=== PATIENT | female | born 1990 | race Caucasian/White ===

== ENCOUNTER 2024-11-13 03:02 | Inpatient (IN) ==
[2024-11-13] MEDS ORDERED: LIDOCAINE 1% LOCAL 20 ML VIAL INFIL PRN (04:43)
[2024-11-13] MEDS ORDERED: NALOXONE HCL 0.4 MG/1 ML VIAL/CARP IV PRN (04:56)
[2024-11-13] MEDS ORDERED: ONDANSETRON INJ 2 MG/ML 2 ML VIAL IV PRN (04:56)
[2024-11-13] MEDS ORDERED: diphenhydrAMINE 50 MG/ML VIAL IV PRN (04:56)
[2024-11-13] MEDS ORDERED: LIDOCAINE 2% MPF LOCAL 5 ML VIAL EPI PRN (04:56)
[2024-11-13] MEDS ORDERED: NALBUPHINE HCL INJ 10 MG/ML AMP IV PRN (04:56)
[2024-11-13] MEDS ORDERED: NALOXONE HCL 1 MG in SODIUM CHLORIDE 0.9% 1,000 ML IV PRN (04:56)
[2024-11-13] MEDS ORDERED: ROPIVACAINE 0.5% PF 5 MG/ML 20 ML VIAL EPI PRN (04:56)
--- NOTE | 2024-11-13 04:56 | Anesthesiology Consultation ---
Date of Service November 13, 2024 Assessment & Plan ASA ASA2 Proposed Anesthesia Anesthesia Type: Labor Epidural Risk / Benefits Reviewed With: PT / POA / Parent / Guardian, Accepts Plan and Informed Consent Obtained History Height/Weight Height: 5 ft 6 in Weight: 76.204 kg Allergies Allergy/AdvReac Type Severity Reaction Status Date / Time No Known Allergies Allergy Verified 11/11/24 15:45 Medications Home Medications Medication Instructions Recorded Confirmed Last Taken PNV [id number] PO 04/06/24 11/11/24 Unknown [ Gummies] famotidine 20 mg tablet (Pepcid) 20 mg PO BID 11/13/24 11/13/24 Unknown Active Medications Generic Name Dose Route Start Last Admin Trade Name Freq PRN Reason Stop Dose Admin Lactated Ringer's 1,000 mls @ 125 mls/hr 11/13/24 04:43 11/13/24 05:00 Lr IV 11/15/24 04:42 999 mls/hr .Q8H PRN Administration L&D Protocol Protocol Past Medical History Medical History History of chicken pox Vasomotor rhinitis FH: breast cancer Exercise / Class Metabolic Activity II 4-5 Yardwork/Stairs/Walk up hill Past Family History Family History Grandmother (Maternal) Breast cancer Mother Breast cancer Cholesteatoma of ear Family/Other Breast cancer Grandfather (Maternal) Heart disease Grandfather (Paternal) Lung disease Father H/O gastric sleeve Denies family history of Ovarian cancer Prostate cancer Diabetes Myocardial infarction Colorectal cancer Past Surgical History Surgical History H/O oral surgery wisdom teeth History of incision and drainage had cyst that was small and growing Past Anesthesia History No Hx of Anesthesia Complications and No Family Hx of Anesthesia Complications History of PONV No Hx of PONV and No Hx of Motion Sickness Social History Smoking Status: Never smoker Do You Dip or Chew Tobacco: No Hx Alcohol Use: No (Socially) Hx Substance Use: No substance use type: does not use Review of Systems denies fever/cough/ colds/ chest pain/ SOB/ FREDI denies FREDI Physical Exam Vital Signs Last Vital Signs Temp 36.7 C 11/13/24 03:35 Pulse 84 11/13/24 05:30 Resp 18 11/13/24 03:35 BP 101/68 11/13/24 03:25 Pulse Ox 100 11/13/24 05:30 ENMT Mouth: no TMJ abnormality and no dentition abnormality Thyromental Distance: > or= 3.5 Finger Breadths Mallampati Class: II Neck neck extension not limited Respiratory normal respiratory effort; no respiratory distress Auscultation: lungs clear to auscultation bilaterally Cardiovascular Rate/Rhythm: regular rate and regular rhythm Neurologic moves all extremities Psychiatric Orientation: alert and oriented x 3 Testing Laboratory Results 11/13/24 04:56
[2024-11-13] MEDS: LACTATED RINGER'S 1,000 ML IV PRN (05:00)
[2024-11-13 05:32] LABS: Hematocrit (blood only) 37.6 % (37.0-47.0); Hemoglobin 12.7 g/dl (12.0-16.0); Mean Corpuscular Hemoglobin 32.6 pg (25.0-34.0); Mean Corpuscular Volume 96.4 fL (80.0-100.0); Platelet Count 213 K/uL (130-400); RDW Standard Deviation 46.8 fL (36.4-46.3); Red Blood Count 3.90 M/uL (4.20-5.40); White Blood Count 15.87 K/ul (4.8-10.8)
[2024-11-13] MEDS: fentANYL 2 MCG/ML BUPIVacaine 0.125%-NSS 100ML BAG ONE (05:56)
[2024-11-13] MEDS: BUPIVACAINE 0.25% PF 30 ML VIAL EPI STA (05:58)
[2024-11-13] MEDS: SODIUM CHLORIDE 0.9% PF INJ 10 ML VIAL EPI STA (05:58)
[2024-11-13] MEDS: LIDOCAINE 2%/EPINEPHRINE 1:200,000 20 ML PF EPI STA (05:58)
[2024-11-13] MEDS: BUPIVACAINE 0.25% PF 30 ML VIAL ONE (06:08)
[2024-11-13] MEDS: LIDOCAINE 2%/EPINEPHRINE 1:200,000 20 ML PF ONE (06:08)
[2024-11-13] MEDS: SODIUM CHLORIDE 0.9% PF INJ 10 ML VIAL ONE (06:08)
[2024-11-13] MEDS ORDERED: ACETAMINOPHEN 500 MG TAB PO PRN (09:01)
[2024-11-13] MEDS: CALCIUM CARBONATE 500 MG CHEWABLE TAB PO PRN (09:13)
[2024-11-13] MEDS: FAMOTIDINE 20MG IV PUSH 20 MG/5 ML SYR IV STA (09:31)
[2024-11-13] MEDS: SODIUM CHLORIDE 0.9% PF INJ 10 ML VIAL EPI PRN (10:14)
[2024-11-13] MEDS: BUPIVACAINE 0.25% PF 30 ML VIAL EPI PRN (10:15)
--- NOTE | 2024-11-13 10:21 | Anesthesia Procedure Note ---
Date of Service November 13, 2024 Anesthesia Epidural Re-Dose Vital Signs Temp Pulse Resp BP Pulse Ox 36.7 C 93 H 18 110/73 100 11/13/24 09:08 11/13/24 10:14 11/13/24 10:00 11/13/24 10:14 11/13/24 10:10 Notes Pain Intensity: 6 Dilatation (cm): 8.5 Effacement (%): 100 Heart Rate: 130 After Epidural Re-Dose Mental Status: alert / awake / arousable Pain: improving with treatment Airway Patency, RR, SpO2: stable & adequate BP & HR: stable & adequate Additional Notes: @ 1014, pt epidural bolused w/ 12 ml 0.17% bupivacaine + 100 mcgs fentanyl w/ in cremental aspirations and injections w/o incident.
[2024-11-13] MEDS: fentANYL 2 MCG/ML BUPIVacaine 0.125%-NSS 100ML BAG EPI PRN (12:14)
[2024-11-13] MEDS: OXYTOCIN 30 UNITS/NSS 30 UNITS/500 ML BAG IV PRN (15:26)
[2024-11-13] MEDS ORDERED: HYDROCORTISONE ACETATE 25 MG SUPP PR PRN (15:36)
[2024-11-13] MEDS ORDERED: OXYTOCIN 30 UNITS/NSS 30 UNITS/500 ML BAG IV PRN (15:36)
--- NOTE | 2024-11-13 15:36 | Delivery Summary ---
Vaginal Delivery Summary Date of Service November 13, 2024 Vaginal Delivery Summary and 2nd Degree LAC "Patient progressed to 10 cm dilated, 100% effaced, +2 station and pushed over intact perineum with epidural anesthesia and delivered a viable with weight and Apgars pending. Head of the delivered without difficulty and was quickly followed by shoulders and body. was noted to be vigorous upon delivery and a 1 minute delayed cord clamping was initiated. Cord was then double clamped and cut remained on maternal abdomen. Cord blood obtained and attention turned deliver the placenta was delivered intact with three-vessel cord gentle cord traction. Inspection of perineum, vagina and cervix was notable for a second-degree perineal laceration which was repaired with 3-0 Vicryl with the traditional crown stitch. Needle sponge and instrument counts are correct at the completion of the case. Both mother and stable in the immediate postdelivery timeframe. No complications noted and blood loss per [facility]BL [facility] Vaginal Delivery Charge Delivery Type Details: and 2nd Degree LAC
--- NOTE | 2024-11-13 16:24 | Anesthesia Procedure Note ---
Date of Service November 13, 2024 Anesthesia Post Epidural Note Vital Signs Vital Signs: Temp Pulse Resp BP Pulse Ox 37.1 C 117 H 18 111/69 99 11/13/24 14:05 11/13/24 16:15 11/13/24 16:15 11/13/24 16:15 11/13/24 15:45 Pain Intensity Bilateral Abdomen: Pain Intensity: 0 Notes Mental Status: alert / awake / arousable Nausea / Vomiting: adequately controlled Pain: adequately controlled Airway Patency, RR, SpO2: stable & adequate BP & HR: stable & adequate Hydration State: stable & adequate Neuraxial Anesthesia: was administered and sensory block is resolving Anesthetic Complications: no major complications apparent Epidural: Removed without complications and With tip intact
[2024-11-13] MEDS: BENZOCAINE 20% SPRY 85 APPLN/85 GM CAN EXT PRN (17:03)
[2024-11-13] MEDS: IBUPROFEN 600 MG TAB PO PRN (17:03)
[2024-11-13] MEDS: ACETAMINOPHEN 325 MG TAB PO PRN (18:41)
[2024-11-13] MEDS: DOCUSATE SODIUM 100 MG CAP PO SCH (20:11)
--- NOTE | 2024-11-14 06:19 | Obstetrical Progress Note ---
Date of Service November 14, 2024 Assessment & Plan (1) examination following vaginal delivery: Plan 34 y/o post- day 1 s/p NVSD Feels well today. Vital signs stable Continue post- care Encourage ambulation and Pain controlled with ibuprofen Hgb stable Discharge home tomorrow, follow up with Dr. Tripp in 6 weeks. Admission and Anticipated Discharge Date Admission Date: November 13, 2024 Supervising Physician Co-Signing Physician Notes Patient seen with resident and agree with the above findings and plan. Patient doing well. Continue routine care Subjective 34 yo post- day 1 s/p NVSD Ambulation: ambulating normally Voiding: no voiding problems Passing Gas:: Yes Diet Tolerance:: regular diet Lochia:: Small Feeding Type:: breast-feeding Current Pain Level: Resting comfortably this AM in NAD. Denies LARA, CP, SOB, N/V/D, LE pain/swelling. Physical Exam Physical Exam: General: patient resting comfortably, NAD, non-toxic in appearance, AA&O x 4, answers questions appropriately. Skin: warm, dry, intact HEENT: NC/AT, anicteric sclera, conjunctiva without injection, moist mucus membranes. Heart: +S1/S2, regular, no m/r/g Lungs: equal air entry bilaterally, no rales/rhonchi/wheezes Abd: +BS, soft, NT/ND, uterine fundus firm below umbilicus Ext: warm, no clubbing/cyanosis or edema, Mely's neg. Neuro: nonfocal, patient AA&O x 4, speech intact, no facial droop, moving all extremities on command. Results & Data Vital Signs (Past 12 Hours) Vital Signs Temp Pulse Pulse Resp BP BP Pulse Ox 11/14/24 02:59 36.7 C 79 18 100/67 97 11/13/24 23:32 36.7 C 88 18 100/65 97 11/13/24 19:16 37.2 C 92 H 18 109/72 96 11/13/24 18:30 101 H 18 96/57 L O2 Del Method 11/14/24 02:59 Room Air 11/13/24 23:32 Room Air 11/13/24 19:16 Room Air 11/13/24 18:30
[2024-11-14] MEDS: PRENATAL VITAMIN 1 TAB PO SCH (08:33)
[2024-11-14] MEDS: FERROUS SULFATE 325 MG TAB PO SCH (08:33)
[2024-11-14] MEDS: DIPHTHER/TETAN/PERTUS Vaccine (Tdap, Adol/Adult) 0.5mL IM ONE (15:50)
[2024-11-15 00:03] VITALS: PULSE 83; O2SAT 96
--- NOTE | 2024-11-15 05:51 | Obstetrical Progress Note ---
Date of Service November 15, 2024 Assessment & Plan (1) examination following vaginal delivery: Plan 34 y/o post- day 2 s/p NVSD Feels well today. Vital signs stable Continue post- care Encourage ambulation and Pain controlled with ibuprofen Hgb stable Discharge home today, follow up with Dr. Tripp in 6 weeks. Admission and Anticipated Discharge Date Admission Date: November 13, 2024 Supervising Physician Co-Signing Physician Notes Resident Physician Supervision Note: I interviewed and examined the patient. Discussed with Dr. Vogel and agree with findings and plan as documented in the note. Any exceptions or clarifications are listed here: [ ] Documented By: Desiree Degroot MD, FACOG Subjective 34 yo post- day 2 s/p NVSD Ambulation: ambulating normally Voiding: no voiding problems Passing Gas:: Yes Diet Tolerance:: regular diet Lochia:: Small Feeding Type:: breast-feeding Current Pain Level: minimal Resting comfortably this AM in NAD. Denies LARA, CP, SOB, N/V/D, LE pain/swelling. Physical Exam Physical Exam: General: patient resting comfortably, NAD, non-toxic in appearance, AA&O x 4, answers questions appropriately. Skin: warm, dry, intact HEENT: NC/AT, anicteric sclera, conjunctiva without injection, moist mucus membranes. Heart: +S1/S2, regular, no m/r/g Lungs: equal air entry bilaterally, no rales/rhonchi/wheezes Abd: +BS, soft, NT/ND, uterine fundus firm below umbilicus Ext: warm, no clubbing/cyanosis or edema, Mely's neg. Neuro: nonfocal, patient AA&O x 4, speech intact, no facial droop, moving all extremities on command. Results & Data Vital Signs (Past 12 Hours) Vital Signs Temp Pulse Resp BP Pulse Ox O2 Del Method 11/14/24 23:45 37.0 C 83 16 106/72 96 Room Air 11/14/24 19:45 37.0 C 87 16 99/67 L 97 Room Air
[2024-11-15 08:15] VITALS: BP 97/67; RESP 18; TEMP 97.7
== END 2024-11-15 12:25 | disposition home or self-care (01) | DRG 807 ==
LOC: OPB 03:02 → 4S1 03:07 → 4E2 18:45